=== PATIENT | female | born 1985 | race Caucasian/White ===

== ENCOUNTER 2017-01-27 07:06 | Emergency (ER) | payer OTHER ==
[2017-01-27 07:14] VITALS: BP 143/99
[2017-01-27] MEDS ORDERED: DEXAMETHASONE 10 MG/ML VIAL PO STA (07:26)
--- NOTE | 2017-01-27 07:29 | ED Physician Documentation ---
PD HPI HEENT - Stated complaint Stated Complaint: EAR PX - Chief complaint Chief Complaint: Heent - History obtained from History obtained from: Patient - History of Present Illness Timing - onset: How many weeks ago (2) Timing - duration: Weeks (2) Timing - details: Gradual onset, Still present Location: Right ear, Sinuses, Nose, Throat Improves: Medication Worsens: Swalllowing Associated symptoms: Congestion, Rhinorrhea, Cough Similar symptoms before: Diagnosis (OM) Recently seen: Not recently seen - Additional information Additional information: 31 y/o female with prior history of OM and tubes as a child has developed congestion and sinus drainage with cough and right ear pain. Review of Systems Constitutional: denies: Fever Ears: reports: Ear pain Nose: reports: Rhinorrhea / runny nose, Congestion, Sinus pressure / pain Throat: reports: Sore throat Cardiac: denies: Chest pain / pressure, Palpitations Respiratory: reports: Cough. 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 - Present Medications Home Medications: Ambulatory Orders Medication Instructions Recorded Confirmed Azithromycin [Zithromax] 250 mg PO DAILY #6 tablet 01/27/17 Levonorgestrel [Mirena] 01/27/17 - Allergies Allergies/Adverse Reactions: Allergies Allergy/AdvReac Type Severity Reaction Status Date / Time amoxicillin Allergy Rash Verified 01/27/17 07:13 - Social History Does the pt smoke?: Yes Smoking Status: Current every day smoker Does the pt drink ETOH?: Yes Does the pt have substance abuse?: No - Immunizations Immunizations are current?: Yes Immunizations: TDAP current <10years PD ED PE NORMAL - Vitals Vital signs reviewed: Yes (hypertensive) - General General: No acute distress, Well developed/nourished - HEENT HEENT: Atraumatic, PERRL, EOMI, Other (both TM's are inflamed the right is marked and looks painful. ) - Neck Neck: Supple, no meningeal sign, No bony TTP - Cardiac Cardiac: RRR, No murmur - Respiratory Respiratory: No respiratory distress, Other (scattered wheezes and rhonchi bilaterally ) - Abdomen Abdomen: Soft, Non tender - Back Back: No CVA TTP, No spinal TTP - Derm Derm: Normal color, Warm and dry, No rash - Extremities Extremities: No deformity, No edema - Neuro Neuro: No motor deficit, No sensory deficit - Psych Psych: Normal mood, Normal affect Results - Vitals Vitals: Vital Signs - 24 hr 01/27/17 07:10 Temperature 36.6 C Heart Rate 92 Respiratory 16 Rate Blood Pressure 143/99 H O2 Saturation 100 Oxygen O2 Source Room air PD MEDICAL DECISION MAKING - ED course Complexity details: considered differential, d/w patient ED course: 31-year-old female with a history of prior otitis has otitis again today and is administered dexamethasone 10 mg orally here in the emergency department and we will place her on some azithromycin.She does have some wheezing on exam she does not feel the use of inhaler is necessary at this time. Departure - Departure Disposition: Home, Self Care Clinical Impression: Otitis media Qualifiers: Otitis media type: suppurative Chronicity: acute Laterality: bilateral Recurrence: not specified as recurrent Spontaneous tympanic membrane rupture: without spontaneous rupture Qualified Code(s): H66.003 - Acute suppurative otitis media without spontaneous rupture of ear drum, bilateral Condition: Stable Instructions: ED Otitis Media Acute Adult Follow-Up: [facility] [Provider Group] Prescriptions: Azithromycin [Zithromax] 250 mg PO DAILY #6 tablet Comments: Today in the Emergency Department your blood pressure was elevated. This can happen from the stress of the visit itself, from a current illness or circumstance or from uncontrolled hypertension. If you take blood pressure medications take your usual mediations, have your blood pressure re-checked in an appropriate setting and follow up any elevation with your primary care doctor.
[2017-01-27] MEDS ORDERED: DEXAMETHASONE 10 MG/ML VIAL ONE (07:34)
[2017-01-27] MEDS ORDERED: CHERRY SYRUP 10 ML UDC PO ONE (07:35)
== END 2017-01-27 07:38 | disposition home or self-care (01) ==
LOC: ED 07:06
DX: H66.003 Acute suppurative otitis media without spontaneous rupture of ear drum, bilateral (principal); R03.0 Elevated blood-pressure reading, without diagnosis of hypertension; F17.200 Nicotine dependence, unspecified, uncomplicated
CPT/HCPCS: 99283; A9270

== ENCOUNTER 2017-11-03 11:33 | Emergency (ER) | payer OTHER ==
[2017-11-03] MEDS ORDERED: IBUPROFEN 400 MG TABLET PO STA (12:11)
[2017-11-03] MEDS ORDERED: oxyCOD/ACETAMIN 5 MG/325 MG TABLET PO STA (12:11)
--- NOTE | 2017-11-03 12:37 | ED Physician Documentation ---
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 - Present Medications Home Medications: Ambulatory Orders Medication Instructions Recorded Confirmed Levonorgestrel [Mirena] 01/27/17 - Allergies Allergies/Adverse Reactions: Allergies Allergy/AdvReac Type Severity Reaction Status Date / Time Penicillins Allergy Mild Hives Verified 11/03/17 11:58 amoxicillin Allergy Rash Verified 01/27/17 07:13 - Social History Does the pt smoke?: Yes Smoking Status: Current every day smoker Does the pt drink ETOH?: Yes Does the pt have substance abuse?: No - Immunizations Immunizations are current?: Yes Immunizations: TDAP current <10years PD ED PE NORMAL - Vitals Vital signs reviewed: Yes - Extremities Extremities: Other (R knee _ effusion, ballotable patella, quad tendon/patella/ patellar tendon NT, extensor mech intact, TTP miedial jt line, medial laxity, effuson and pain limit exam but no ACL laxity appreicated, unable to manipulat knee enough to test medial meniscus, MSV intact) Results - Vitals Vitals: Vital Signs - 24 hr 11/03/17 11:54 Temperature 36.9 C Heart Rate 77 Respiratory 18 Rate Blood Pressure 125/77 O2 Saturation 98 Oxygen O2 Source Room air - Rads (name of study) knee Radiology: See rad report (neg) PD MEDICAL DECISION MAKING - Sepsis Event Vital Signs: Vital Signs - 24 hr 11/03/17 11:54 Temperature 36.9 C Heart Rate 77 Respiratory 18 Rate Blood Pressure 125/77 O2 Saturation 98 Oxygen O2 Source Room air Departure - Departure Disposition: 01 Home, Self Care Clinical Impression: Medial collateral ligament sprain of knee Qualifiers: Encounter type: initial encounter Laterality: right Qualified Code(s): S83.411A - Sprain of medial collateral ligament of right knee, initial encounter Condition: Good Instructions: ED Meniscal Injury Knee Poss, ED Sprain Knee Collateral Ligaments Follow-Up: [facility] [Provider Group] Comments: The xray does not show a fracture Based on your exam I think your injured your medical collateral ligament and perhaps the meniscus Please use the crutches as needed and wear the knee brace whenever ambulating. Follow up with orthopedics for further evaluation and perhaps a MRI to better evaluate the ligaments and menisci Motrin and tylenol for the pain Ice and elevation for the swelling Forms: Activity restrictions
--- NOTE | 2017-11-03 12:48 | XRAY Report ---
Procedure Date: 11/03/2017 Accession Number: [id number] / [id number] Procedure: XR - Knee 4 View RT CPT Code: FULL RESULT: EXAM: RIGHT KNEE RADIOGRAPHY EXAM DATE: 11/03/2017 12:38 PM. CLINICAL HISTORY: Twist fall pain swell. COMPARISON: None. TECHNIQUE: 3 views. FINDINGS: Bones: Normal. No fractures or bone lesions. Joints: Normal. No definite effusion. No subluxations. Soft Tissues: Normal. No soft tissue swelling. IMPRESSION: No acute radiographic abnormality identified. RADIA
[2017-11-03 14:05] VITALS: BP 124/80
== END 2017-11-03 14:04 | disposition home or self-care (01) ==
LOC: ED 11:33
DX: S83.411A Sprain of medial collateral ligament of right knee, initial encounter (principal); X50.1XXA Overexertion from prolonged static or awkward postures, initial encounter; Y93.68 Activity, volleyball (beach) (court); F17.200 Nicotine dependence, unspecified, uncomplicated
CPT/HCPCS: 73564; 99282; 99283; A9270

== ENCOUNTER 2019-07-20 17:10 | Emergency (ER) | payer OTHER ==
--- NOTE | 2019-07-20 17:38 | ED Physician Documentation ---
PD HPI UPPER EXT INJURY - Stated complaint Stated Complaint: RT WRIST INJ - Chief complaint Chief Complaint: Ext Problem - History obtained from History obtained from: Patient - History of Present Illness Location: Right, Hand Type of injury: Fall Where injury occurred: Home Timing - onset: How many weeks ago (1) Timing - duration: Weeks (1) Timing - details: Abrupt onset Pain level max: 7 Pain level now: 6 Improved by: Rest, Ice, Immobilization Worsened by: Moving, Palpating Associated symptoms: No: Weakness, Numbness, Tingling, Swelling, Discolored Contributing factors: No: Anticoagulated Recently seen: Not recently seen - Additonal information Additional information: Patient is right-handed. 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 - Present Medications Home Medications: Ambulatory Orders Medication Instructions Recorded Confirmed Levonorgestrel [Mirena] 01/27/17 - Allergies Allergies/Adverse Reactions: Allergies Allergy/AdvReac Type Severity Reaction Status Date / Time Penicillins Allergy Mild Hives Verified 07/20/19 17:38 amoxicillin Allergy Rash Verified 07/20/19 17:38 - Social History Does the pt smoke?: Yes Smoking Status: Current every day smoker Does the pt drink ETOH?: Yes Does the pt have substance abuse?: No - Immunizations Immunizations are current?: Yes Immunizations: TDAP current <10years PD ED PE NORMAL - Vitals Vital signs reviewed: Yes - General General: Alert and oriented X 3, No acute distress - HEENT HEENT: Moist mucous membranes - Derm Derm: Warm and dry - Extremities Extremities: Other (Right hand tender to palpation over the base of the fourth metacarpal. No swelling. No ecchymosis. Otherwise normal examination of the hand and wrist. No snuffbox tenderness. Neurovascularly intact) - Neuro Neuro: Alert and oriented X 3 Results - Vitals Vitals: Vital Signs - 24 hr 07/20/19 07/20/19 17:15 18:31 Temperature 37.5 C 36.9 C Heart Rate 89 73 Respiratory 18 18 Rate Blood Pressure 154/110 H 165/113 H O2 Saturation 97 97 Oxygen O2 Source Room air - Rads (name of study) Right hand Radiology: Prelim report reviewed, EMP read contemporaneously, See rad report (Nondisplaced fracture of the proximal fourth metacarpal. There is some limitation in assessment secondary to bony overlap through this region. No dislocation identified. ) Procedures - Splint (location) Right hand Splint applied by: Physician, Tech Type of splint: Short arm, Ulnar gutter Other: Patient tolerated well, No complications, Neurovascular intact PD MEDICAL DECISION MAKING - ED course Complexity details: reviewed results, re-evaluated patient, considered differential, d/w patient ED course: 34-year-old female with a right fourth metacarpal fracture. Placed in ulnar gutter splint. We will have her follow-up with orthopedics. Neurovascularly intact. Patient counseled regarding signs and symptoms for which I believe and urgent re-evaluation would be necessary. Patient with good understanding of and agreement to plan and is comfortable going home at this time This document was made in part using voice recognition software. While efforts are made to proofread this document, sound alike and grammatical errors may occur. Departure - Departure Disposition: 01 Home, Self Care Clinical Impression: Fracture of fourth metacarpal bone Qualifiers: Encounter type: initial encounter Fracture type: closed Metacarpal location: base Fracture alignment: nondisplaced Laterality: right Qualified Code(s): S62.344A - Nondisplaced fracture of base of fourth metacarpal bone, right hand, initial encounter for closed fracture Condition: Good Instructions: ED Fx Hand Closed Follow-Up: [facility] [Provider Group] - Within 1 week Comments: Return if you worsen. Follow-up with orthopedics for further care. You have a fracture at the base of your fourth metacarpal. Wear the splint until released by orthopedics Discharge Date/Time: 07/20/19 18:31
--- NOTE | 2019-07-20 18:03 | XRAY Report ---
Reason: Trauma, pain Procedure Date: 07/20/2019 Accession Number: [id number] / [id number] Procedure: XR - Hand 3 View RT CPT Code: Final Report FULL RESULT: EXAM: RIGHT HAND RADIOGRAPHY EXAM DATE: 07/20/2019 05:53 PM. CLINICAL HISTORY: Trauma, pain. COMPARISON: None. TECHNIQUE: 3 views. FINDINGS: Bones: Nondisplaced appearing fracture at the proximal fourth metacarpal. No other definite fracture identified. Joints: No dislocation. Soft Tissues: Soft tissue swelling. No radiopaque foreign body. IMPRESSION: Nondisplaced fracture of the proximal fourth metacarpal. There is some limitation in assessment secondary to bony overlap through this region. No dislocation identified. RADIA
[2019-07-20 18:32] VITALS: BP 165/113
== END 2019-07-20 18:31 | disposition home or self-care (01) ==
LOC: ED 17:10
DX: S62.394A Other fracture of fourth metacarpal bone, right hand, initial encounter for closed fracture (principal); W19.XXXA Unspecified fall, initial encounter; F17.200 Nicotine dependence, unspecified, uncomplicated
CPT/HCPCS: 29125; 99283